=== PATIENT | male | born 1975 | race Caucasian/White ===

== ENCOUNTER → 2018-02-10 | Outpatient (CLI) | payer BC, OTHER | LOC: CAT 02-04 10:40 | DX: K76.0 Fatty (change of) liver, not elsewhere classified (principal); N62 Hypertrophy of breast; M47.814 Spondylosis without myelopathy or radiculopathy, thoracic region; R91.8 Other nonspecific abnormal finding of lung field; F17.200 Nicotine dependence, unspecified, uncomplicated ==

== ENCOUNTER → 2019-02-02 | Outpatient (CLI) | payer OTHER | LOC: RAD 13:00 | DX: R04.2 Hemoptysis (principal) ==

== ENCOUNTER → 2019-02-08 | Outpatient (CLI) | payer OTHER | LOC: CAT 02-07 10:57 | DX: K82.8 Other specified diseases of gallbladder (principal); R91.8 Other nonspecific abnormal finding of lung field ==